=== PATIENT | male | born 1945 | race Caucasian/White ===

== ENCOUNTER 2025-05-02 09:15 | Inpatient (IN) ==
[~2025-05-02 09:15] MED LIST: DEXTROSE 31 GM ORAL.SUSP PO PRN; DEXTROSE 50% 50 ML VIAL IV PRN; ENALAPRILAT 1.25 MG/ML VIAL IV PRN; MAGNESIUM SULFATE 2 GM/50 ML BAG IV PRN; METOCLOPRAMIDE 10 MG/2 ML VIAL IV PRN; ONDANSETRON 4 MG/2 ML VIAL IV PRN; POLYETHYLENE GLYCOL 3350 17 GM PACKET PO PRN; POTASSIUM CHLORIDE 20 MEQ TABLET PO PRN; POTASSIUM CHLORIDE 40 MEQ in DEXTROSE 5% IN WATER 500 ML IV PRN; SENNOSIDES 1 TABLET PO PRN; hydrALAZINE 20 MG/ML VIAL IV PRN
[2025-05-02] MEDS: AZITHROMYCIN 500 MG in DEXTROSE 5% IN WATER 250 ML IV SCH (10:50)
[2025-05-02] MEDS: BUDESONIDE 0.5 MG/2 ML AMPUL.NEB NEB SCH (11:25)
[2025-05-02] MEDS: IPRATROPIUM/ALBUTEROL 3 ML AMPUL.NEB NEB SCH (11:25)
[2025-05-02 11:44] LABS: Estimated Average Glucose(eAG) 171.0 mg/dL; Hemoglobin A1C 7.6 % Hgb (4.0-6.0)
[2025-05-02] MEDS: METOPROLOL TARTRATE 5 MG/5 ML VIAL IV PRN (11:51)
[2025-05-02] MEDS ORDERED: DILTIAZEM 125 MG in DEXTROSE 5% IN WATER 100 ML IV PRN (12:00)
[2025-05-02] MEDS: DIAZEPAM 10 MG/2 ML SYRINGE IV PRN (12:02)
[2025-05-02] MEDS: FUROSEMIDE 40 MG/4 ML VIAL IV ONE ×2 (12:11→12:16)
[2025-05-02] MEDS: DOCUSATE SODIUM 100 MG CAPSULE PO SCH (12:16)
[2025-05-02] MEDS: ENOXAPARIN 40 MG/0.4 ML SYRINGE SQ SCH (12:16)
[2025-05-02] MEDS: DEXMEDETOMIDINE 400 MCG in PREMIX 1 BAG IV SCH (12:34)
[2025-05-02] MEDS: APIXABAN 5 MG TABLET PO SCH (12:44)
[2025-05-02] MEDS: DEXMEDETOMIDINE 100 ML IV ONE (12:44)
[2025-05-02] MEDS: INSULIN LISPRO 1 UNIT/0.01 ML UNIT SQ SCH (13:55)
[2025-05-02] MEDS: METOPROLOL TARTRATE 50 MG TABLET PO SCH (13:55)
[2025-05-02] MEDS: cefTRIAXone 1 GM VIAL IV SCH (17:09)
[2025-05-03 06:09] LABS: Basophils # (Auto) 0.01 K/mcL (0.00-0.30); Basophils % (Auto) 0 % (0.0-2.0); Eosinophils # (Auto) 0 K/mcL (0.00-0.70); Eosinophils % (Auto) 0 % (0.0-7.0); Hematocrit 43.2 % (40.1-51.0); Hemoglobin 13.7 g/dL (13.7-17.5); Lymphocytes # (Auto) 1.27 K/mcL (1.50-4.80); Lymphocytes % (Auto) 5.1 % (15.5-49.0); Mean Corpuscular HGB Conc 31.7 g/dL (31.0-36.0); Monocytes # (Auto) 0.62 K/mcL (0.10-0.90); Monocytes % (Auto) 2.5 % (1.0-12.0); Neutrophils % (Auto) 88.6 % (38.0-78.0); Platelet Count 494 K/mcL (140-440); RBC 4.38 M/mcL (4.63-6.08); WBC 24.8 K/mcL (4.5-11.0)
[2025-05-03 06:34] LABS: ALT/SGPT 210 U/L (<40); AST/SGOT 46 U/L (<40); Albumin 2.5 gm/dL (3.2-5.2); Albumin/Globulin Ratio 0.6 (1.0-2.3); Alkaline Phosphatase 140 U/L (39-117); Anion Gap 15.0 (8.0-16.0); Bilirubin,Direct < 0.2 mg/dL (0-0.3); Bilirubin,Total 0.3 mg/dL (0.1-1.0); Blood Urea Nitrogen 42 mg/dL (8-23); Calcium 8.8 mg/dL (8.6-10.4); Carbon Dioxide 23 mmol/L (22-30); Chloride 99 mmol/L (96-108); Globulin 4.2 gm/dL (2.2-3.7); Glucose 218 mg/dL (70-105); Phosphorous 4.3 mg/dL (2.5-4.5); Potassium 4.3 mmol/L (3.3-5.1); Sodium 137 mmol/L (133-145); Triglycerides 104 mg/dL (<150); Uric Acid 10.8 mg/dL (2.5-8.0)
[2025-05-03] MEDS: ATORVASTATIN 10 MG TABLET PO SCH (08:23)
[2025-05-03 09:22] LABS: RBC Morphology NORMAL (Normal)
[2025-05-03] MEDS: LISINOPRIL 20 MG TABLET PO SCH (10:23)
[2025-05-04] MEDS: ACETAMINOPHEN 325 MG TABLET PO PRN (05:56)
[2025-05-04 06:19] LABS: Hematocrit 43.6 % (40.1-51.0); Hemoglobin 13.6 g/dL (13.7-17.5); Mean Corpuscular HGB Conc 31.2 g/dL (31.0-36.0); Platelet Count 500 K/mcL (140-440); RBC 4.25 M/mcL (4.63-6.08); WBC 27.3 K/mcL (4.5-11.0)
[2025-05-04 06:53] LABS: ALT/SGPT 186 U/L (<40); AST/SGOT 71 U/L (<40); Albumin 2.3 gm/dL (3.2-5.2); Albumin/Globulin Ratio 0.6 (1.0-2.3); Alkaline Phosphatase 119 U/L (39-117); Anion Gap 12.0 (8.0-16.0); Bilirubin,Direct < 0.2 mg/dL (0-0.3); Bilirubin,Total 0.2 mg/dL (0.1-1.0); Blood Urea Nitrogen 46 mg/dL (8-23); Calcium 8.9 mg/dL (8.6-10.4); Carbon Dioxide 24 mmol/L (22-30); Chloride 102 mmol/L (96-108); Globulin 3.8 gm/dL (2.2-3.7); Glucose 204 mg/dL (70-105); Phosphorous 3.6 mg/dL (2.5-4.5); Potassium 4.6 mmol/L (3.3-5.1); Sodium 138 mmol/L (133-145); Triglycerides 105 mg/dL (<150); Uric Acid 10.7 mg/dL (2.5-8.0)
[2025-05-04 08:07] LABS: RBC Morphology NORMAL (Normal)
[2025-05-04] MEDS: ALBUMIN HUMAN 12.5 GM/50 ML VIAL IV ONE (08:56)
[2025-05-04] MEDS: FUROSEMIDE 40 MG/4 ML VIAL IV ONE (08:56)
[2025-05-05 06:35] LABS: Hematocrit 41.6 % (40.1-51.0); Hemoglobin 13.6 g/dL (13.7-17.5); Mean Corpuscular HGB Conc 32.7 g/dL (31.0-36.0); Platelet Count 560 K/mcL (140-440); RBC 4.24 M/mcL (4.63-6.08); WBC 21.6 K/mcL (4.5-11.0)
[2025-05-05 07:03] LABS: C-Reactive Protein 8.03 mg/dL (0.03-0.80)
[2025-05-05 07:04] LABS: ALT/SGPT 145 U/L (<40); AST/SGOT 41 U/L (<40); Albumin 2.7 gm/dL (3.2-5.2); Albumin/Globulin Ratio 0.8 (1.0-2.3); Alkaline Phosphatase 102 U/L (39-117); Anion Gap 11.0 (8.0-16.0); Bilirubin,Direct < 0.2 mg/dL (0-0.3); Bilirubin,Total 0.2 mg/dL (0.1-1.0); Blood Urea Nitrogen 48 mg/dL (8-23); Calcium 9.0 mg/dL (8.6-10.4); Carbon Dioxide 27 mmol/L (22-30); Chloride 101 mmol/L (96-108); Globulin 3.3 gm/dL (2.2-3.7); Glucose 230 mg/dL (70-105); Phosphorous 3.4 mg/dL (2.5-4.5); Potassium 4.4 mmol/L (3.3-5.1); Sodium 139 mmol/L (133-145); Triglycerides 109 mg/dL (<150); Uric Acid 10.5 mg/dL (2.5-8.0)
[2025-05-05] MEDS: IPRATROPIUM/ALBUTEROL 3 ML AMPUL.NEB NEB PRN (07:36)
[2025-05-05 08:55] LABS: RBC Morphology NORMAL (Normal)
[2025-05-05 15:15] VITALS: TEMP 97.8; O2SAT 92
== END 2025-05-05 14:59 | DRG 871 ==
LOC: ICU 09:47 → MEDSUR 05-04 20:14
PROVIDERS: ADMIT Internal Medicine; ATTEND Internal Medicine